=== PATIENT | female | born 1990 | race African-American/Black ===

== ENCOUNTER 2021-04-27 15:07 | Emergency (ER) | payer OTHER ==
[~2021-04-27] VITALS: Ht 160 cm; Wt 65.8 kg
--- NOTE | 2021-04-27 15:28 | NUR ---
patient signed waiver, verbalized "i am not ".
--- NOTE | 2021-04-27 15:34 | NUR ---
BUSINESS INFO CONSULTANT AT BEDSIDE FOR XRAY.
[2021-04-27] MEDS ORDERED: KETOROLAC TROMETHAMINE INJ 30 MG/ML VIAL ONE (15:37)
[2021-04-27] MEDS ORDERED: KETOROLAC TROMETHAMINE INJ 30 MG/ML VIAL IM ONE (16:00)
[2021-04-27] MEDS ORDERED: CYCL5TAB PO (17:31)
[2021-04-27] MEDS ORDERED: IBUP-1953 PO (17:32)
[2021-04-27 17:38] VITALS: BP 122/71
--- NOTE | 2021-04-27 17:38 | NUR ---
Patient discharged to home in stable condition. Written and verbal after care instructions given. Patient verbalizes understanding of instruction.
== END 2021-04-27 17:38 | disposition home or self-care (01) ==
LOC: ER 15:10
DX: M94.0 Chondrocostal junction syndrome [Tietze] (principal); M54.6 Pain in thoracic spine; M25.571 Pain in right ankle and joints of right foot; V49.49XA Driver injured in collision with other motor vehicles in traffic accident, initial encounter; Y93.89 Activity, other specified; Y92.413 State road as the place of occurrence of the external cause; Y99.8 Other external cause status
CPT/HCPCS: 71045; 72074; 73650; 84703; 96372; 99284; J1885

== ENCOUNTER 2021-10-21 14:04 | Emergency (ER) | payer MEDICAID ==
[~2021-10-21] VITALS: Ht 160 cm; Wt 65.8 kg
[~2021-10-21 14:04] MED LIST: CYCL5TAB PO; IBUP-1953 PO
--- NOTE | 2021-10-21 14:30 | NUR ---
BIBS C/O GENERALIZED WEAKNESS X 2 WEEKS WITH ON AN DOFF NAUSEA AND VOMITTING. AMBULATORY, [id number]. PLACED ON BED
--- NOTE | 2021-10-21 14:45 | NUR ---
AT BED SIDE
[2021-10-21 15:20] LABS: BASOPHILS % (AUTO) 0.2 % (0.0-2.0); EOSINOPHILS % (AUTO) 2.6 % (0.0-6.0); HEMATOCRIT 35 % (33-45); HEMOGLOBIN 11.8 g/dL (11.5-14.8); LYMPHOCYTES # (AUTO) 1.4 K/uL (0.8-4.8); LYMPHOCYTES % (AUTO) 28.2 % (20.0-44.0); MEAN CORPUSCULAR HGB CONC 34 g/dl (31.0-36.0); MEAN CORPUSCULAR VOLUME 86 fL (82-100); MONOCYTES # (AUTO) 0.4 K/uL (0.1-1.30); MONOCYTES % (AUTO) 8.7 % (2.0-12.0); NEUTROPHILS # (AUTO) 3.1 K/uL (1.8-8.9); NEUTROPHILS % (AUTO) 60.3 % (43.0-81.0); PLATELET COUNT (AUTO) 151 K/uL (150-450); RED BLOOD CELL COUNT(AUTO) 4.09 MIL/uL (4.0-5.2); WHITE BLOOD COUNT (AUTO) 5.1 K/uL (4.3-11.0)
--- NOTE | 2021-10-21 15:30 | NUR ---
LAW OFFICE RECEPTIONIST. AT BED SIDE
[2021-10-21 15:37] LABS: BILIRUBIN,URINE NEGATIVE (NEGATIVE); COLOR,URINE YELLOW (YELLOW); LEUKOCYTE ESTERASE ,URINE NEGATIVE (NEGATIVE); NITRITE, URINE NEGATIVE (NEGATIVE); PROTEIN,URINE TRACE mg/dl (NEGATIVE); UGLUCOSE NEGATIVE (NEGATIVE); UROBILINOGEN,URINE 0.2 EU/dL (0.2)
[2021-10-21 15:39] LABS: CALCIUM, SERUM 8.4 mg/dL (8.5-10.1); CREATININE 0.6 mg/dL (0.6-1.3); POTASSIUM 3.1 mmol/L (3.5-5.1)
[2021-10-21 15:45] LABS: BILIRUBIN,DIRECT 0.1 mg/dL (0.0-0.2); BILIRUBIN,TOTAL 0.2 mg/dL (0.2-1.0)
[2021-10-21] MEDS ORDERED: PREN1TAB81 PO (16:21)
--- NOTE | 2021-10-21 16:29 | NUR ---
Patient discharged to home in stable condition. Written and verbal after care instructions given. Patient verbalizes understanding of instruction.
[2021-10-21] MEDS ORDERED: POTASSIUM CHLORIDE 20 MEQ TAB.PRT.SR PO ONE (16:30)
[2021-10-21 16:41] VITALS: BP 115/60
== END 2021-10-21 16:25 | disposition home or self-care (01) ==
LOC: ER 14:17
DX: O26.891 Other specified pregnancy related conditions, first trimester (principal); O26.811 Pregnancy related exhaustion and fatigue, first trimester; R11.0 Nausea; R74.8 Abnormal levels of other serum enzymes; Z79.899 Other long term (current) drug therapy; Z3A.00 Weeks of gestation of pregnancy not specified
CPT/HCPCS: 36415; 80048-TC; 80076-TC; 83690-TC; 84703-TC; 85025-TC